=== PATIENT | male | born 1975 | race African-American/Black ===

== ENCOUNTER 2024-08-01 12:58 | Outpatient (AMB) | payer OTHER, SELFPAY ==
--- NOTE | 2024-08-01 13:03 | A.OFFVIS_ITS ---
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 Mold Technician Required: No Accompanied by: Self / Same As Patient Allergies egg allergy Allergy (Intermediate, Uncoded 08/01/24 13:02) Unknown Medication List - Last Reconciled 08/01/24 by Jay Parr MD albuterol sulfate 90 mcg/actuation (Ventolin HFA) 2 puffs inhalation Q6H PRN amlodipine 5 mg PO DAILY blood sugar diagnostic (FreeStyle Lite Strips) As directed blood-glucose meter (FreeStyle Lite Meter kit) As directed budesonide-formoterol 160-4.5 mcg/actuation (Symbicort) inhalation cholecalciferol (vitamin D3) 25 mcg PO DAILY diclofenac sodium 1% (Voltaren Arthritis Pain) 2 grams topical QID fluconazole 150 mg PO Q3D lancets (FreeStyle Lancets) As directed metformin 850 mg PO DAILY thiamine HCl (vitamin B1) 100 mg PO DAILY tiotropium bromide 1.25 mcg/actuation (Spiriva Respimat) 2 puffs inhalation DAILY HPI Comments Details: Cheri is a very pleasant male. He is a patient Dr. Fam. He seen for the following urologic conditions - renal mass Imaging reviewed Left 2.7 cm cystic exophytic renal mass Highly likely to be renal cell carcinoma variant Discussed natural history Plan on reimaging in 2 months Would likely be a good candidate for cryotherapy given diabetes diagnosis [facility] Medical History Onychomadesis HTN (hypertension) Diabetes mellitus, type II Balanitis Asthma Alcohol abuse Acute pancreatitis Review of Systems Const Denies chills and Denies fever(s) Card Reports no additional complaints and Denies syncope Resp Denies cough GI Denies abdominal pain and Denies heartburn Reports as per HPI and Denies change in libido Neuro Denies syncope Psych Denies change in libido Endo Denies change in libido Physical Exam Const General: cooperative, healthy appearing, comfortable and no acute distress Orientation/consciousness: patient oriented x3 HEENT Face and sinus: Yes normal facial exam Mouth: moist mucous membranes Neck Neck: Yes normal visual inspection, Yes full ROM and Yes trachea midline Chest Chest palpation & inspection: normal inspection of the chest Resp Effort & Inspection: normal respiratory effort, able to speak in complete sentences and no respiratory distress GI Inspection: Yes normal to inspection Back/Spine/Pelvis Cervical Spine: normal cervical lordosis Thoracic/Lumbar Spine: thoracic and lumbar spine normal to inspection Skin General skin exam: no rashes or lesions noted Neuro General: patient oriented x3, gait normal, tone normal and moves all extremities Extrem General: Yes normal to inspection and Yes capillary refill normal Assessment & Plan Assessment & Plan (1) Renal cancer: Code(s): C64.9 - Malignant neoplasm of unspecified kidney, except renal pelvis Category: Medical Plan Two month follow-up surveillance imaging Orders: Orders Blood Urea Nitrogen 2 Months C64.9 - Malignant neoplasm of unspecified kidney, except renal pelvis, R39.15 - Urgency of urination CT abdomen w IV con 2 Months C64.9 - Malignant neoplasm of unspecified kidney, except renal pelvis Creatinine 2 Months C64.9 - Malignant neoplasm of unspecified kidney, except renal pelvis, R39.15 - Urgency of urination Patient Instructions: Imaging studies, laboratory and physical exam results were discussed and reviewed in detail. No major barriers to patient understanding were identified. An opportunity to ask questions regarding the treatment plan was provided. All questions were answered. The patient expressed understanding and agreement with the above treatment plan. The patient is aware they should contact our office by phone for worsening of their current condition or the appearance of new urologic symptoms. Compliance is encouraged with any medications and followup testing that is ordered. It is a privilege to participate in the urologic care of your patient. If you have any questions or concerns regarding treatment for the above conditions, or other urologic issues, please do not hesitate to contact me. The office telephone contact is [phone]. This note is constructed using voice recognition software. While every effort has been made to ensure accuracy nanny/household manager errors may have been included. Yours sincerely, Dr Jay Parr MD, [facility] - Urology Providers of Expert, Compassionate Care for the Genitourinary System Coding Level of Care Code New Pt Level 4 (98100) Diagnoses Renal cancer C64.9
== END 2024-08-01 13:34 | disposition home or self-care (01) ==
PROVIDERS: PCP Nurse Practitioner Family; Visit Provider Urology
DX: C64.9 Malignant neoplasm of unspecified kidney, except renal pelvis (principal)
CPT/HCPCS: 99204

== ENCOUNTER → 2024-08-01 12:58 | Outpatient (BNVA) | payer OTHER, SELFPAY | PROVIDERS: PCP Nurse Practitioner Family; Visit Provider Urology | DX: C64.9 Malignant neoplasm of unspecified kidney, except renal pelvis (principal) | CPT/HCPCS: 99202 ==

== ENCOUNTER 2024-09-21 13:34 | Outpatient (AMB) | payer OTHER, SELFPAY ==
--- NOTE | 2024-09-21 13:37 | MHC.OFFVIS ---
Intake Visit Reasons: discuss erectile dysfunction concerns Intake Note: Patient with New Problem is present for Erectile Dysfunction concerns Urology Med: None Antibiotic Allergy: None Blood Thinner: None Patient was recently seen for Renal cancer, at time of appointment he forget to mention that he has some Erectile Dyf concerns Testing Machine Operator Required: No Accompanied by: Self / Same As Patient Allergies egg allergy Allergy (Intermediate, Uncoded 09/21/24 13:41) Unknown HPI Comments Details: Cheri is a very pleasant male. He is a patient Dr. Fam. He seen for the following urologic conditions - renal cancer - erectile dysfunction Erectile dysfunction Progressive over past 3 years Is able to obtain partial erection but can not maintain through penetration Associated with diabetes Recommend daily tadalafil with on demand tadalafil Demonstrated penile constriction band Imaging reviewed Left 2.7 cm cystic exophytic renal mass Highly likely to be renal cell carcinoma variant Discussed natural history Plan on reimaging in 2 months Would likely be a good candidate for cryotherapy given diabetes diagnosis [facility] Medical History Onychomadesis HTN (hypertension) Diabetes mellitus, type II Balanitis Asthma Alcohol abuse Acute pancreatitis Review of Systems Const Denies chills and Denies fever(s) Card Reports no additional complaints and Denies syncope Resp Denies cough GI Denies abdominal pain and Denies heartburn Reports as per HPI and Denies change in libido Neuro Denies syncope Psych Denies change in libido Endo Denies change in libido Physical Exam Const General: cooperative, healthy appearing, comfortable and no acute distress Orientation/consciousness: patient oriented x3 HEENT Face and sinus: Yes normal facial exam Mouth: moist mucous membranes Neck Neck: Yes normal visual inspection, Yes full ROM and Yes trachea midline Chest Chest palpation & inspection: normal inspection of the chest Resp Effort & Inspection: normal respiratory effort, able to speak in complete sentences and no respiratory distress GI Inspection: Yes normal to inspection Rectal Exam - Male: Yes normal sphincter tone and Yes prostate normal Male General Exam: Yes normal external exam Penis: normal penis and circumcised Meatus: meatus normal Scrotum: scrotum normal Testes: Testes normal Back/Spine/Pelvis Cervical Spine: normal cervical lordosis Thoracic/Lumbar Spine: thoracic and lumbar spine normal to inspection Skin General skin exam: no rashes or lesions noted Neuro General: patient oriented x3, gait normal, tone normal and moves all extremities Extrem General: Yes normal to inspection and Yes capillary refill normal Assessment & Plan Assessment & Plan (1) Erectile dysfunction associated with type 2 diabetes mellitus: Code(s): E11.69 - Type 2 diabetes mellitus with other specified complication; N52.1 - Erectile dysfunction due to diseases classified elsewhere Category: Medical Plan High-dose tadalafil Follow-up as planned Medications: New tadalafil [facility] [address] [id number] 5 mg PO DAILY 90 days 90 tabs 1RF sexual activity E11.69 - Type 2 diabetes mellitus with other specified complication, N52.1 - Erectile dysfunction due to diseases classified elsewhere tadalafil On demand medication take 60 minutes before intended activity [facility] [address] [id number] 20 mg PO ONCE 30 days PRN 30 tabs 0RF sexual activity E11.69 - Type 2 diabetes mellitus with other specified complication, N52.1 - Erectile dysfunction due to diseases classified elsewhere Patient Instructions: Imaging studies, laboratory and physical exam results were discussed and reviewed in detail. No major barriers to patient understanding were identified. An opportunity to ask questions regarding the treatment plan was provided. All questions were answered. The patient expressed understanding and agreement with the above treatment plan. The patient is aware they should contact our office by phone for worsening of their current condition or the appearance of new urologic symptoms. Compliance is encouraged with any medications and followup testing that is ordered. It is a privilege to participate in the urologic care of your patient. If you have any questions or concerns regarding treatment for the above conditions, or other urologic issues, please do not hesitate to contact me. The office telephone contact is [phone]. This note is constructed using voice recognition software. While every effort has been made to ensure accuracy paper bag inspector errors may have been included. Yours sincerely, Dr Jay Parr MD, [facility] - Urology Providers of Expert, Compassionate Care for the Genitourinary System Coding Level of Care Code Est Pt Level 4 (52008) Diagnoses Erectile dysfunction associated with type 2 diabetes mellitus E11.69; N52.1
== END 2024-09-21 14:17 | disposition home or self-care (01) ==
LOC: HO.HUSH 13:35
PROVIDERS: PCP Nurse Practitioner Family; Visit Provider Urology
DX: E11.69 Type 2 diabetes mellitus with other specified complication (principal); N52.1 Erectile dysfunction due to diseases classified elsewhere
CPT/HCPCS: 99214

== ENCOUNTER → 2024-09-21 13:34 | Outpatient (BNVA) | payer OTHER, SELFPAY | PROVIDERS: PCP Nurse Practitioner Family; Visit Provider Urology | DX: E11.69 Type 2 diabetes mellitus with other specified complication (principal); N52.1 Erectile dysfunction due to diseases classified elsewhere | CPT/HCPCS: 99212 ==

== ENCOUNTER 2024-10-04 14:23 | Outpatient (REF) | payer OTHER, SELFPAY ==
[2024-10-04] MEDS: iohexoL 350 MG/ML 75 ML INFUS..BTL 85 ML IV (15:14)
== END 2024-10-04 14:24 | disposition home or self-care (01) ==
LOC: HO.CT 14:23
PROVIDERS: Visit Provider Urology
DX: C64.9 Malignant neoplasm of unspecified kidney, except renal pelvis (principal)
CPT/HCPCS: 74160; Q9967

== ENCOUNTER → 2024-10-04 14:25 | Outpatient (BNV) | payer OTHER, SELFPAY | PROVIDERS: Visit Provider Radiology Diagnostic Radiology | DX: D41.02 Neoplasm of uncertain behavior of left kidney (principal); K86.1 Other chronic pancreatitis | CPT/HCPCS: 74160 ==

== ENCOUNTER 2024-11-02 13:28 | Outpatient (AMB) | payer OTHER, SELFPAY ==
--- NOTE | 2024-11-02 13:29 | MHC.OFFVIS ---
Intake Visit Reasons: CT follow up Intake Note: Patient is present for Urology Med: Tadalafil Antibiotic Allergy: None Blood Thinner: None Patient Symptoms: No symptoms Bulb Grower Required: No Accompanied by: Self / Same As Patient Allergies egg allergy Allergy (Intermediate, Uncoded 11/02/24 13:30) Unknown HPI Comments Details: Cheri is a very pleasant male. He is a patient Dr. Fam. He seen for the following urologic conditions - renal cancer - erectile dysfunction Telemedicine Evaluation 15 min Consultation Enpirion Miah Video Three-month follow-up from daily use of tadalafil with on demand - effective Reimaging of renal lesion High degree of suspicion [place] renal biopsy with cryotherapy Erectile dysfunction Progressive over past 3 years Is able to obtain partial erection but can not maintain through penetration Associated with diabetes Recommend daily tadalafil with on demand tadalafil Demonstrated penile constriction band Imaging reviewed Left 2.7 cm cystic exophytic renal mass Highly likely to be renal cell carcinoma variant Discussed natural history Plan on reimaging in 2 months Would likely be a good candidate for cryotherapy given diabetes diagnosis [facility] Medical History (Reviewed 11/02/24 @ 13:32 by Marlena Monterroso [facility]) Onychomadesis HTN (hypertension) Diabetes mellitus, type II Balanitis Asthma Alcohol abuse Acute pancreatitis Review of Systems Const All systems reviewed & are unremarkable except as noted in HPI and below Reports no additional complaints Resp Reports no additional complaints GI Reports no additional complaints Reports as per HPI Musc Reports no additional complaints Physical Exam Telemedicine evaluation Appropriate responses Regular breathing rate and rhythm HEENT Head: Yes normal to inspection Ears: hearing grossly normal bilaterally Eyes General: appearance normal, both eyes and all related structures Neck Neck: Yes normal visual inspection Chest Chest palpation & inspection: normal inspection of the chest Resp Effort & Inspection: normal respiratory effort and able to speak in complete sentences Telehealth Telehealth Telehealth Platform: Enpirion Location of provider rendering services: practice address Location of patient: address on file Patient Identification confirmed using: Name, : Yes Telehealth method: video Patient verbally consented to treatment: Yes Patient verbally consented to billing insurance company: Yes Patient informed of any privacy concerns related to visit: Yes Minutes spent on Phone/Video with Pt.: 15 Assessment & Plan Assessment & Plan (1) Renal cancer: Code(s): C64.9 - Malignant neoplasm of unspecified kidney, except renal pelvis Category: Medical (2) Erectile dysfunction associated with type 2 diabetes mellitus: Code(s): E11.69 - Type 2 diabetes mellitus with other specified complication; N52.1 - Erectile dysfunction due to diseases classified elsewhere Category: Medical Plan Risks, benefits and alternatives to therapy were discussed. These include but are not limited to infection, bleeding, damage to local organs and tissues, need for further interventions. Anesthetic risks regarding cardiac arrhythmia, blood clots, and potential mortality were discussed. The patient understands the typical recovery time and the outpatient nature of the procedure. After consideration of these risks the patient gives full informed consent and they wish to move ahead with the procedure. CT guided renal cryotherapy Orders: Orders CT Guided Cryo Ablation Renal Today C64.9 - Malignant neoplasm of unspecified kidney, except renal pelvis Referrals Interventional Radiology Referral C64.9 - Malignant neoplasm of unspecified kidney, except renal pelvis Patient Instructions: Imaging studies, laboratory and physical exam results were discussed and reviewed in detail. No major barriers to patient understanding were identified. An opportunity to ask questions regarding the treatment plan was provided. All questions were answered. The patient expressed understanding and agreement with the above treatment plan. The patient is aware they should contact our office by phone for worsening of their current condition or the appearance of new urologic symptoms. Compliance is encouraged with any medications and followup testing that is ordered. It is a privilege to participate in the urologic care of your patient. If you have any questions or concerns regarding treatment for the above conditions, or other urologic issues, please do not hesitate to contact me. The office telephone contact is [phone]. This note is constructed using voice recognition software. While every effort has been made to ensure accuracy fish boning machine feeder errors may have been included. Yours sincerely, Dr Jay Parr MD, [facility] - Urology Providers of Expert, Compassionate Care for the Genitourinary System Coding Level of Care Code Tele Est Pt Level 4 (76607) Diagnoses Renal cancer C64.9 Erectile dysfunction associated with type 2 diabetes mellitus E11.69; N52.1
== END 2024-11-02 15:38 | disposition home or self-care (01) ==
LOC: HO.HUSH 13:29
PROVIDERS: PCP Nurse Practitioner Family; Visit Provider Urology
DX: C64.9 Malignant neoplasm of unspecified kidney, except renal pelvis (principal); E11.69 Type 2 diabetes mellitus with other specified complication; N52.1 Erectile dysfunction due to diseases classified elsewhere
CPT/HCPCS: 99214

== ENCOUNTER → 2024-12-26 09:29 | Outpatient (BNVA) | payer OTHER, SELFPAY | PROVIDERS: PCP Nurse Practitioner Family; Visit Provider Urology ==

== ENCOUNTER 2025-01-29 11:48 | Day surgery (SDC) | payer OTHER, SELFPAY ==
--- OUTSIDE RECORDS SUMMARY | 2025-01-10 10:10 | XMS_ITS | Clinical Summary ---
Author Organization [facility] ity Address [address] [place] [address] Care Team Providers Care Grooming Assistant Name Role Phone Unavailable Primary Care Provider Unavailabl e Social History Tobacco Use Types Packs/Day Years Used Date Smoking Tobacco: Never Assessed Sex and Gender Information Value Date Recorded Sex Assigned at Not on file Legal Sex Male 3:02 AM EST Gender Identity Not on file Sexual Orientation Not on file Plan of Treatment Health Maintenance Due Date Last Done Comments DTaP,Tdap,and Td Vaccines (1 - Tdap) 1994 Hepatitis B Vaccines (1 of 3 - 19+ 3-dose series) 1994 Cholesterol Screening (Lipid Panel) 10/24/2022 Colorectal Cancer Screening: Colonoscopy 10/24/2022 Depression Screening 10/24/2022 HIV Screening 10/24/2022 Hepatitis C Screening 10/24/2022 Social Influencers of Health Screening 10/24/2022 COVID-19 Vaccine ( - 2023-2 5 season) 2024 Influenza Vaccine (#1) 2024 HIB Vaccines Aged Out No longer eligi ble based on patient's age to complete this topic HPV Vaccines Aged Out No longer eligi ble based on patient's age to complete this topic Hepatitis A Vaccines Aged Out No long er eligible based on patient's age to complete this topic IPV Vaccines Aged Out No longer eligi ble based on patient's age to complete this topic MMR Vaccines Aged Out No longer eligi ble based on patient's age to complete this topic Meningococcal ACWY Vaccine Aged Out N o longer eligible based on patient's age to complete this topic Meningococcal B Vacine Aged Out No lo nger eligible based on patient's age to complete this topic Pneumococcal Vaccine: Pediat rics (0 to 5 Years) and At-Risk Patients (6 to 64 Years) Aged Out No longer eligible b ased on patient's age to complete this topic RSV Immunization Patients Un darlene 20 months Aged Out No longer eligible b ased on patient's age to complete this topic Varicella Vaccines Aged Out No longer eligible based on patient's age to complete this topic
[2025-01-25 09:58] VITALS: BMI 26.4
--- NOTE | 2025-01-28 11:50 | HO.ANESPROP2 ---
Documented by User: Susan Howard NP 01/28/25 11:52 HPI - Anesthesia Eval Consult details Narrative: 49yo M for Kidney Cryo-Ablation Hold 4 Hrs ETOH abuse PMFSH Active Problems Active Problems: All Active Problems (Updated 01/28/25 @ 11:50 by Susan Howard NP) Erectile dysfunction associated with type 2 diabetes mellitus (Acute) Renal cancer (Acute) Past Medical History Medical History Cough Positive skin test for tuberculosis COPD (chronic obstructive pulmonary disease) Chronic alcoholic liver disease Onychomadesis HTN (hypertension) Diabetes mellitus, type II Balanitis Asthma Alcohol abuse Acute pancreatitis Surgical History Surgical History H/O removal of cyst Social History Social History Are you a primary pharmacy customer care specialist to a significant other at home: No Do you presently have visiting nurse or other home services: No Patient Tobacco Use Status: Current everyday Tobacco user Cigarette Packs Per Day: 1.0 Cigarettes Per Day: 20.0 Use of substances other than those prescribed or required for medical reasons: Yes Substance Use Frequency: Daily Have you been hit, kicked, punched, or otherwise hurt by someone within the past year? If so, by whom?: No Are you DNR?: No Advance Directives: No Advance Directives Information Provided: Yes Advance Directives on File: No Recently lost weight without trying: No Eating poorly because of decreased appetite: No Nutrition Risks: No Nutritional Risk Poor oral hygiene: Yes (partial upper and lower, one lower crown) Meds Allergies Allergy/AdvReac Type Severity Reaction Status Date / Time Milk Containing Products Allergy Unknown Verified 01/24/25 11:52 (Dairy) egg allergy Allergy Intermediate Unknown Uncoded 12/26/24 09:30 Home Medications ?Medication ?Instructions ?Recorded ?Confirmed ?Last Taken ?Type amlodipine 5 mg tablet 5 mg PO DAILY 08/01/24 01/25/25 Unknown History blood sugar diagnostic (FreeStyle #10 ea 08/01/24 08/01/24 Unknown History Lite Strips) blood-glucose meter (FreeStyle #1 ea 08/01/24 08/01/24 Unknown History Lite Meter kit) budesonide-formoterol HFA 160 2 inh inhalation BID 08/01/24 01/25/25 Unknown History mcg-4.5 mcg/actuation aerosol inhaler (Symbicort) cholecalciferol (vitamin D3) 25 25 mcg PO DAILY 08/01/24 01/25/25 Unknown History mcg (1,000 unit) capsule lancets 28 gauge (FreeStyle #100 ea 08/01/24 08/01/24 Unknown History Lancets) thiamine HCl (vitamin B1) 100 mg 100 mg PO DAILY 08/01/24 01/25/25 Unknown History tablet metformin 1,000 mg tablet 1,000 mg PO BID 01/25/25 01/25/25 Unknown History Exam Height,Weight and Vital Signs: Height 5 ft 4 in Weight 69.853 kg Narrative Narrative: EKG 2023 Ventricular Rate: 83 BPM Atrial Rate: 83 BPM P-R Interval: 180 ms QRS Duration: 88 ms Q-T Interval: 342 ms QTC Calculation(Bazett): 401 ms P Franklin: 61 degrees R Franklin: 34 degrees T Franklin: 3 degrees Normal sinus rhythm Normal ECG No previous ECGs available Confirmed by LISA CONKLIN MD ([id number]) on 04/08/2024 7:41:08 AM CXR 2023 IMPRESSION: No acute abnormality. No change. Assessment and Plan Assessment Anesthesia Assessment: Chart Reviewed Documented by User: Vitaliy Mendiola MD 01/29/25 14:27 [facility] Past Medical History Medical History Cough Positive skin test for tuberculosis COPD (chronic obstructive pulmonary disease) Chronic alcoholic liver disease Onychomadesis HTN (hypertension) Diabetes mellitus, type II Balanitis Asthma Alcohol abuse Acute pancreatitis Family History Family history of problems with anesthesia: No Surgical History Surgical History H/O removal of cyst History of Problems with Anesthesia: No Social History Social History Are you a primary pharmacy customer care specialist to a significant other at home: No Do you presently have visiting nurse or other home services: No Patient Tobacco Use Status: Current everyday Tobacco user Cigarette Packs Per Day: 1.0 Cigarettes Per Day: 20.0 Use of substances other than those prescribed or required for medical reasons: Yes Substance Use Frequency: Daily Have you been hit, kicked, punched, or otherwise hurt by someone within the past year? If so, by whom?: No Are you DNR?: No Advance Directives: No Advance Directives Information Provided: Yes Advance Directives on File: No Recently lost weight without trying: No Eating poorly because of decreased appetite: No Nutrition Risks: No Nutritional Risk Poor oral hygiene: Yes (partial upper and lower, one lower crown) Meds Allergies Allergy/AdvReac Type Severity Reaction Status Date / Time Milk Containing Products Allergy Unknown Verified 01/24/25 11:52 (Dairy) egg allergy Allergy Intermediate Unknown Uncoded 12/26/24 09:30 Home Medications ?Medication ?Instructions ?Recorded ?Confirmed ?Last Taken ?Type amlodipine 5 mg tablet 5 mg PO DAILY 08/01/24 01/25/25 Unknown History blood sugar diagnostic (FreeStyle #10 ea 08/01/24 08/01/24 Unknown History Lite Strips) blood-glucose meter (FreeStyle #1 ea 08/01/24 08/01/24 Unknown History Lite Meter kit) budesonide-formoterol HFA 160 2 inh inhalation BID 08/01/24 01/25/25 Unknown History mcg-4.5 mcg/actuation aerosol inhaler (Symbicort) cholecalciferol (vitamin D3) 25 25 mcg PO DAILY 08/01/24 01/25/25 Unknown History mcg (1,000 unit) capsule lancets 28 gauge (FreeStyle #100 ea 08/01/24 08/01/24 Unknown History Lancets) thiamine HCl (vitamin B1) 100 mg 100 mg PO DAILY 08/01/24 01/25/25 Unknown History tablet metformin 1,000 mg tablet 1,000 mg PO BID 01/25/25 01/25/25 Unknown History Exam Airway Mallampati Class: II TM Dist: >3cm Loose/Missing/Broken Teeth: Yes Assessment and Plan Assessment Anesthesia Assessment: Anesthesia Plan Discussed Final Anesthetic Review Family History of Problems with Anesthesia: No History of Problems with Anesthesia: No NPO: Yes ASA Class: III Final Preanesthetic Review: No Changes in Pt Med Stat, Meds/Allgs Chart Reviewed, Consent Obtained/Reviewed and Anes Risks/Benef Reviewed Patient Risk: Intermediate Procedure Risk: Low Anesthetic Plan Anesthetic Plan: GA Disposition: Standard PACU
[2025-01-29] VITALS (12 sets, daily range): BP systolic 132–156; BP diastolic 83–103; PULSE 71–92; RESP 18–20; TEMP 36.6–36.9; O2SAT 94–97
--- NOTE | ~2025-01-29 | CT_ITS ---
History: Patient with 2.44 x 2.1 x 2.16 cm mass at the upper pole of the left kidney. Presents for ablation. Procedure performed: 1. CT-guided cryoablation of left renal mass Physician: Arelis Eason MD Anesthesia: General. See anesthesiology note; 9 mL of 1% lidocaine used for local anesthesia. Specimen: None Drain: None Estimated blood loss: Minimal Complications: None Procedure in detail: Informed and written consent was obtained. The patient was positioned prone on the CT examination table. Preliminary CT scan showed no significant change in the presence of a left upper pole mass. The overlying skin was prepped and draped and we marked two areas for access. 1% lidocaine was injected into the subcutaneous tissues at the planned access sites. Two small incisions were made adjacent to one another with a #11 blade and spaced between 1 and 1.5 cm apart. Next, and in a sequential fashion, two ICE MALORIE cryoablation probes were advanced under CT guidance directly into the mass. The positioning was exactly as desired. We then began treatment with a freeze cycle followed by passive thaw followed by a second freeze cycle followed by an active thaw with subsequent tract ablation performed on both probes. The ice ball was monitored during treatment and confirmed surgical margins were obtained for the mass. Following removal of the probes, a subsequent CT scan showed no evidence of bleeding nor other complication. We were satisfied with this and elected to terminate the procedure. A sterile dressing was applied. Summary: Successful CT-guided cryoablation of a left upper pole renal mass as described in detail above. Electronically signed by: Bird Eason MD 01/29/2025 03:37 PM EDT
[2025-01-29 12:29] LABS: Glucose, Whole Blood 164 mg/dL (60-115)
[2025-01-29] MEDS: Lactated Ringers 1,000 ML 100 ML IVCONT (12:41)
[2025-01-29] MEDS: Lidocaine HCl 1 % MPF 30 ML VIAL 10 ML SUBCUT (15:29)
[2025-01-29] MEDS: oxyCODONE HCl Immed Release 5 MG TABLET 10 MG PO (16:02)
[2025-01-29] MEDS: Acetaminophen 325 MG TABLET 650 MG PO (16:03)
[2025-01-29] MEDS: Lidocaine 5 % Ointment 35 GM 1 APPL TOPICAL (16:55)
== END 2025-01-29 18:00 | disposition home or self-care (01) ==
PROVIDERS: PCP Nurse Practitioner Family; Visit Provider Radiology Vascular & Interventional Radiology
DX: C46.9 Kaposi's sarcoma, unspecified (principal); I10 Essential (primary) hypertension; N48.1 Balanitis; E11.69 Type 2 diabetes mellitus with other specified complication; N52.1 Erectile dysfunction due to diseases classified elsewhere; K85.90 Acute pancreatitis without necrosis or infection, unspecified; L60.8 Other nail disorders; J45.909 Unspecified asthma, uncomplicated; Z79.84 Long term (current) use of oral hypoglycemic drugs; Z79.899 Other long term (current) drug therapy; Z91.012 Allergy to eggs; Z91.011 Allergy to milk products; F10.10 Alcohol abuse, uncomplicated; F17.210 Nicotine dependence, cigarettes, uncomplicated; Z79.51 Long term (current) use of inhaled steroids
CPT/HCPCS: 50593; 77013; 82947; J0690; J1100; J2003; J2405; J2704; J3010

== ENCOUNTER → 2025-01-29 13:52 | Outpatient (BNV) | payer OTHER, SELFPAY | PROVIDERS: PCP Nurse Practitioner Family; Visit Provider Radiology Vascular & Interventional Radiology | DX: N28.89 Other specified disorders of kidney and ureter (principal) | CPT/HCPCS: 50593; 77013 ==

== ENCOUNTER 2025-02-14 13:09 | Outpatient (AMB) | payer OTHER, SELFPAY ==
--- NOTE | 2025-02-14 13:10 | A.OFFVIS_ITS ---
Intake Visit Reasons: Cryo, follow up Intake Note: Patient is present for [facility] F/U Urology Medication:TADALAFIL,VITAMIN B1 Antibiotic Allergy:NONE Blood Thinner:NONE Maintenance Analyst Required: No Allergies Milk Containing Products (Dairy) Allergy (Verified 02/14/25 13:10) Unknown egg allergy Allergy (Intermediate, Uncoded 02/14/25 13:10) Unknown HPI Comments Details: Cheri is a very pleasant male. He is a patient Dr. Fam. He seen for the following urologic conditions - renal cancer - erectile dysfunction Telemedicine Evaluation 15 min Consultation TuTanda Miah Video Follow-up cryotherapy Doing well Six-month follow-up imaging Erectile dysfunction Progressive over past 3 years Is able to obtain partial erection but can not maintain through penetration Associated with diabetes Recommend daily tadalafil with on demand tadalafil Demonstrated penile constriction band Renal cancer - 02/12 cryoablation Left 2.7 cm cystic exophytic renal mass Complex renal cyst PFSH Medical History Cough Positive skin test for tuberculosis COPD (chronic obstructive pulmonary disease) Chronic alcoholic liver disease Onychomadesis HTN (hypertension) Diabetes mellitus, type II Balanitis Asthma Alcohol abuse Acute pancreatitis Surgical History H/O removal of cyst Social History Are you a primary acute care certified nursing assistant to a significant other at home: No Do you presently have visiting nurse or other home services: No Patient Tobacco Use Status: Current everyday Tobacco user Cigarette Packs Per Day: 1.0 Cigarettes Per Day: 20.0 Review of Systems Const All systems reviewed & are unremarkable except as noted in HPI and below Reports no additional complaints Resp Reports no additional complaints GI Reports no additional complaints Reports as per HPI Musc Reports no additional complaints Physical Exam Telemedicine evaluation Appropriate responses Regular breathing rate and rhythm HEENT Head: Yes normal to inspection Ears: hearing grossly normal bilaterally Eyes General: appearance normal, both eyes and all related structures Neck Neck: Yes normal visual inspection Chest Chest palpation & inspection: normal inspection of the chest Resp Effort & Inspection: normal respiratory effort and able to speak in complete sentences Telehealth Telehealth Location of provider rendering services: practice address Location of patient: address on file Patient Identification confirmed using: Name, : Yes Telehealth method: voice only Patient verbally consented to treatment: Yes Patient verbally consented to billing insurance company: Yes Patient informed of any privacy concerns related to visit: Yes Assessment & Plan Assessment & Plan (1) Renal cancer: Code(s): C64.9 - Malignant neoplasm of unspecified kidney, except renal pelvis Category: Medical (2) Erectile dysfunction associated with type 2 diabetes mellitus: Code(s): E11.69 - Type 2 diabetes mellitus with other specified complication; N52.1 - Erectile dysfunction due to diseases classified elsewhere Category: Medical Plan Six-month follow-up MRI imaging Orders: Orders MR abdomen wo/w con 6 Months C64.9 - Malignant neoplasm of unspecified kidney, except renal pelvis Patient Instructions: This note is constructed using voice recognition software. While every effort has been made to ensure accuracy cutter helper errors may have been included. Imaging studies, laboratory and physical exam results were discussed and reviewed in detail. No major barriers to patient understanding were identified. An opportunity to ask questions regarding the treatment plan was provided. All questions were answered. The patient expressed understanding and agreement with the above treatment plan. The patient is aware they should contact our office by phone for worsening of their current condition or the appearance of new urologic symptoms. Compliance is encouraged with any medications and followup testing that is ordered. It is a privilege to participate in the urologic care of your patient. If you have any questions or concerns regarding treatment for the above conditions, or other urologic issues, please do not hesitate to contact me. The office telephone contact is [phone]. Sincerely, Dr Jay Parr MD, [facility] - Urology Compassionate Specialist Care for the Genitourinary System Coding Level of Care Code Tele Est Pt Level 3 (00967) Diagnoses Renal cancer C64.9 Erectile dysfunction associated with type 2 diabetes mellitus E11.69; N52.1
== END 2025-02-14 15:02 | disposition home or self-care (01) ==
LOC: HO.HUSH 13:09
PROVIDERS: PCP Nurse Practitioner Family; Visit Provider Urology
DX: C64.9 Malignant neoplasm of unspecified kidney, except renal pelvis (principal); E11.69 Type 2 diabetes mellitus with other specified complication; N52.1 Erectile dysfunction due to diseases classified elsewhere
CPT/HCPCS: 98013

== ENCOUNTER → 2025-02-14 13:09 | Outpatient (BNVA) | payer OTHER, SELFPAY | PROVIDERS: PCP Nurse Practitioner Family; Visit Provider Urology ==

== ENCOUNTER 2025-08-02 10:22 | Outpatient (REF) | payer OTHER, SELFPAY ==
--- NOTE | ~2025-08-02 | MR_ITS ---
EXAMINATION: MR ABDOMEN WITHOUT THEN WITH IV CONTRAST HISTORY: C64.9 - Malignant neoplasm of unspecified kidney, except renal pelvis COMPARISON: Correlation is made with a CT of the abdomen with contrast dated 10/04/2024. TECHNIQUE: Axial in and out of phase T1-weighted gradient echo, axial diffusion weighted, and axial and coronal HASTE T2 with fat saturation images were obtained through the abdomen. Subsequently, fat suppressed axial and coronal T1-weighted images were obtained after the intravenous administration of 7 mL Gadavist. FINDINGS: Liver: There is diffuse loss of signal intensity in the liver on opposed phase imaging, compatible with steatosis. There is no enhancing liver mass. The hepatic and portal veins are patent. There is no intrahepatic biliary dilatation. Gallbladder/biliary tree: No gallstones are identified. The common bile duct is normal in caliber. No intraluminal filling defects are identified to suggest choledocholithiasis. Spleen: The spleen is unremarkable. Pancreas: The pancreas is unremarkable. There is no enhancing pancreatic mass. The pancreatic duct is normal in caliber. Adrenals: The adrenal glands are unremarkable. Kidneys: The right kidney is unremarkable. There is an irregularly-shaped 2.5 x 1.6 x 1.9 cm ablation cavity at the medial aspect of the upper pole of the left kidney which is hypointense on T1 and T2-weighted images. There is no associated contrast enhancement. There is no hydronephrosis. Lymph nodes: There is no retroperitoneal lymphadenopathy in the upper abdomen. Fluid: There is no ascites in the upper abdomen. Visualized bowel: The visualized small and large bowel loops are unremarkable in appearance. Visualized bones: The visualized bones demonstrate normal marrow signal intensity. MR/MR abdomen wo/w con IMPRESSION: 1. Ablation cavity of the medial aspect of the upper pole of the left kidney. No residual enhancement is seen. 2. Hepatic steatosis. Electronically signed by: Christopher Jacobs MD 08/02/2025 11:47 AM EDT
--- OUTSIDE RECORDS SUMMARY | 2025-08-02 12:04 | XMS_ITS | Clinical Summary ---
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 Phone Unavailable Primary Care Provider [...] Panel) 10/24/2022 Colorectal Cancer Screening: Colonoscopy 10/24/2022 HIV Screening 10/24/2022 Hepatitis C Screening 10/24/2022 Social Influencers of Health Screening 10/24/2022 Depression Screening 11/21/2024 COVID-19 Vaccine ( - 2023-2 5 season) 2025 Influenza Vaccine (#1) 2025 HIB Vaccines Aged Out No longer eligi [...] age to complete this topic Meningococcal B Vaccine Aged Out No l onger eligible based on patient's age to complete this topic Pneumococcal Vaccine: Pediat rics (0 to 5 Years) and At-Risk Patients (6 to 49 Years) Aged Out No longer eligible b ased on patient's age to complete this topic RSV Immunization Patients Un darlene 20 months Aged Out No longer eligible b ased on patient's age to complete this topic Varicella Vaccines Aged Out No longer eligible based on patient's age to complete this topic
== END 2025-08-02 10:23 | disposition home or self-care (01) ==
LOC: HO.MRI 10:22
PROVIDERS: Visit Provider Urology
DX: C64.9 Malignant neoplasm of unspecified kidney, except renal pelvis (principal)
CPT/HCPCS: 74183; A9585

== ENCOUNTER → 2025-08-02 10:31 | Outpatient (BNV) | payer OTHER, SELFPAY | PROVIDERS: Visit Provider Radiology Diagnostic Radiology | DX: K76.0 Fatty (change of) liver, not elsewhere classified (principal) | CPT/HCPCS: 74183 ==

== ENCOUNTER 2025-08-13 13:13 | Outpatient (AMB) | payer OTHER, SELFPAY ==
--- OUTSIDE RECORDS SUMMARY | 2025-08-08 17:12 | XMS_ITS | Encounter Summary ---
Author Organization [facility] Address [address] [place] [address] Care Team Providers Care Event Specialist Food Demonstrator Name Role Phone Physician, Pcp Unknown Primary Care Provider Amber vailable Reason for Visit * Reason Comments Abdominal Pain Hx of pancreatitis. Encounter Details Date Type Department Care Team ([facility] st Contact Info) Description 08/08/2025 5:12 PM EDT - 08/08/2025 8:32 PM EDT Emergency [facility] Emergency [address] [place] [address] Jessica Arvizu MD [address] [place] [address] Peg Cronin MD [address] [place] [id number] Acute on chronic pancreatitis (CMS/HCC V24, CMS/HCC V28) (Primary Dx) Discharge Disposition: Home or Self Care Social History Tobacco Use Types Packs/Day Years Used Date Smoking Tobacco: Never Assessed Sex and Gender Information Value Date Recorded Sex Assigned at Not on file Legal Sex Male 3:02 AM EST Gender Identity Not on file Sexual Orientation Not on file documented as of this encounter Last Filed Vital Signs Vital Sign Reading Time Taken Comments Blood Pressure 136/96 08/08/2025 5:54 PM EDT Pulse 76 08/08/2025 7:15 PM EDT Temperature 36.7 C (98.1 F) 08/08/2025 11:18 AM EDT Respiratory Rate 18 08/08/2025 5:54 PM EDT Oxygen Saturation 95% 08/08/2025 7:15 PM EDT Inhaled Oxygen Concentration - - Weight 68 kg (150 lb) 08/08/2025 11:18 AM EDT Height 162.6 cm (5' 4 ) 08/08/2025 11:18 AM EDT Body Mass Index 25.75 08/08/2025 11:18 AM EDT documented in this encounter Discharge Instructions * Discharge Instructions* Peg Crnoin MD - 08/08/2025 8:21 PM EDT Please take Tylenol ibuprofen as needed for pain. Please start with a clear liquid diet including water, broth, Jell-O. You can progress as tolerated to things like oatmeal, toast, rice. You can continue to advance your diet if tolerated. Please return to the hospital if your symptoms worsen. You would require admission to the hospital at that point. * Attachments The following attachments cannot be sent through Care Everywhere. * Pancreatitis: Chronic Diet (Lao) * Pancreatitis: Acute: General Info (Lao) documented in this encounter Discharge Disposition Disposition Code Departure Means Destination Comment s Home or Self Care documented in this encounter Progress Notes * Peg Cronin MD - 08/08/2025 6:36 PM EDT This patient was signed out to me by ED provider, Dr Arvizu. Briefly, the patient presented to the ED with abdominal pain, vomiting, inability to tolerate p.o. since day prior. Signed out to me pending CT abdomen pelvis. On my evaluation he has just completed nebulizer treatment. He is satting 94% on room air and his lungs are clear on my examination. On my abdominal exam he has some mild epigastric tenderness. He isfeeling better after pain medication but is not sure whether or not he will be able to take p.o. Given water to attempt, may require admission due to inability to take p.o. in the setting of pancreatitis. Patient denies history of significant alcohol withdrawal previously, does normally drink daily but no alcohol withdrawal seizures before. ED Course as of 08/08/252021 Odalys Aug 08, [id number] Lipase(!): 311 Elevated [RG] 1803 Comprehensive metabolic panel(!) Hyperglycemia, mildly elevated LFTs AST/ALT 54/80, otherwise WNL [RG] 1804 CBC and differential(!) No leukocytosis or anemia [RG] 180 Pt signed out to Dr. Cronin pending CT, re-evaluation of symptoms [RG] 1934 Patient tolerated water [AM] 1955 CT with fatty liver, acute on chronic pancreatitis, and renal mass that is unchanged from previous. [AM] 2019 Discussed with patient who is amenable at this time for discharge on clear liquid diet, advance diet as tolerated. Given return precautions for worsening abdominal pain and inability to toleratep.o., at that point would require admission for acute pancreatitis [AM] ED Course User Index [AM] Peg Cronin MD [RG] Jessica Arvizu MD Clinical Impressions as of 08/08/252021 Acute on chronic pancreatitis (CMS/HCC V24, CMS/HCC V28) * Mehdi Hutton RN - 08/08/2025 11:17 AM EDT Patient states abdominal pain from his pancreatitis. * Jessica Arvizu MD - 08/08/2025 11:15 AM EDT HPI Chief Complaint Patient presents with Abdominal Pain Hx of pancreatitis. Patient with history, per discharge summary 08/22/2024, of alcoholic pancreatitis, left renal mass, HTN, DM, seen at that time due to left-sided abdominal pain with lipase 193, also with UTI, CT showing mass with concern for renal cell carcinoma, note of no metastases or stones, treated at that timewith Dilaudid, note that he follows with [facility] presents saying that he has had aching pain throughout his entire belly since yesterday which is constant, makes it hard to sleep, associated with 1 episode of vomiting yesterday, no ongoing nausea, currently 8/10 in severity, unimproved withibuprofen 600 mg that he has been taking every 6 hours. Patient states that he had a bowel movement yesterday which was normal for him and denies chest pain, shortness of breath, fever, alcohol withdrawal symptoms. He states that he last had alcohol 2 days ago, usually drinks daily, specifically 4 to 5 40 ounces of beer, has been doing so for the last few months, has history of intermittent bingedrinking like this. He states he also smokes tobacco, denies other substance use. 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 No past surgical history on file. No family history on file. Social History Tobacco Use Smoking status: Not on file Smokeless tobacco: Not on file Substance Use Topics Alcohol use: Not on file Drug use: Not on file Review of Systems Review of Systems Physical Exam ED Triage Vitals [08/08/25 1118] Temp Heart Rate Resp BP 36.7 ??C (98.1 ??F) 75 18 (!) 146/98 SpO2 Temp Source Heart Rate Source Patient Position 97 % Oral Monitor Sitting BP Location FiO2 (%) Left arm -- Physical Exam Vitals and nursing note reviewed. Constitutional: General: He is not in acute distress. Appearance: Normal appearance. He is not ill-appearing. Cardiovascular: Rate and Rhythm: Normal rate and regular rhythm. Heart sounds: Normal heart sounds. Pulmonary: Effort: Pulmonary effort is normal. Breath sounds: Wheezing and rhonchi present. Comments: Mild wheezing and rhonchi Abdominal: Palpations: Abdomen is soft. Tenderness: There is generalized abdominal tenderness. Neurological: Mental Status: He is alert. ED Course & MDM Medical Decision Making Ddx: Pancreatitis, GERD, PUD, dehydration, electrolyte derangement, UTI, alcohol use disorder, asthma, COPD, smoker's cough, less likely other biliary tree pathology, SBO, other acute intraabdominal pathology, pneumonia Patient is well-appearing with vitals WNL on RA on arrival and normal cardiac exam, lung exam with mild diffuse wheezing and diffuse abdominal tenderness. Will obtain CT A/P. Patient is pending basiclabs, belly labs. Will treat with IVF, zofran, analgesia, duo-neb. Did consider CXR for pneumonia based on mild rhonchi and wheezing however patient has no symptoms consistent with this. Discussed plan. Amount and/or Complexity of Data Reviewed External Data Reviewed: notes. Labs: ordered. Decision-making details documented in ED Course. Radiology: ordered. ED Course as of 08/09/25 1947 Odalys Aug 08, 2025 1803 Lipase(!): 311 Elevated [RG] 1802 Comprehensive metabolic panel(!) Hyperglycemia, mildly elevated LFTs AST/ALT 54/80, otherwise WNL [RG] 1803 CBC and differential(!) No leukocytosis or anemia [RG] 1803 Pt signed out to Dr. Cronin pending CT, re-evaluation of symptoms [RG] 1934 Patient tolerated water [AM] 1955 CT with fatty liver, acute on chronic pancreatitis, and renal mass that is unchanged from previous. [AM] 2019 Discussed with patient who is amenable at this time for discharge on clear liquid diet, advance diet as tolerated. Given return precautions for worsening abdominal pain and inability to toleratep.o., at that point would require admission for acute pancreatitis [AM] ED Course User Index [AM] Peg Cronin MD [RG] Jessica Arvizu MD Clinical Impressions as of 08/09/251946 Acute on chronic pancreatitis (CMS/HCC V24, CMS/HCC V28) Procedures Jessica Arvizu MD 08/08/251800 Jessica Arvizu MD 08/09/251952 documented in this encounter Plan of Treatment Not on file documented as of this encounter Procedures Procedure Name Priority Date/Time Associated Diagnosis Comments CT ABDOMEN PELVIS W CONTRAST STAT 08/08/2025 7:31 PM EDT CBC WITH AUTO DIFFERENTIAL STAT 08/08/2025 12:51 PM EDT CBC AND DIFFERENTIAL STAT 08/08/2025 12:51 PM EDT LIPASE STAT 08/08/2025 12:51 PM EDT COMPREHENSIVE METABOLIC PANEL STAT 08/08/2025 12:51 PM EDT documented in this encounter Results * CT Abdomen Pelvis w Contrast (08/08/2025 7:31 PM EDT) Anatomical Region Laterality Modality Body Computed Tomogra phy 08/08/2025 7:50 PM EDT Impressions 08/08/2025 7:50 PM EDT 1. Fatty infiltration of the liver. 2. Acute pancreatitis superimposed on chronic pancreatitis. 3. Left renal lesion likely representing a angiomyolipoma measuring 3 cm unchanged since prior study. This document has been electronically signed by: Mary Castellano MD on 08/08/2025 19:50:05 Narrative 08/08/2025 7:50 PM EDT INDICATION: Abdominal pain, acute, nonlocalized CT abdomen and pelvis with contrast Comparison: CT/KO/NV/SR - ABDOMEN AND PELVIS C+ CT - 08/21/24 09:04 EDT Findings: The lung bases are clear. Fatty infiltration of the liver. The gallbladder, spleen, adrenals are unremarkable. Acute pancreatitis superimposed on chronic pancreatitis. Left renal lesion likely representing a angiomyolipoma measuring 3 cm unchanged since prior study. No bowel obstruction, pneumoperitoneum, or pneumatosis. Pelvic contents unremarkable. Normal appendix. The bones are intact. Procedure Note Mary Castellano MD - 08/08/2025 INDICATION: Abdominal pain, acute, nonlocalized CT abdomen and pelvis with contrast Comparison: CT/KO/NV/SR - ABDOMEN AND PELVIS C+ CT - 08/21/24 09:04 EDT Findings: The lung bases are clear. Fatty infiltration of the liver. The gallbladder, spleen, adrenals are unremarkable. Acute pancreatitis superimposed on chronic pancreatitis. Left renal lesion likely representing a angiomyolipoma measuring 3 cm unchanged since prior study. No bowel obstruction, pneumoperitoneum, or pneumatosis. Pelvic contents unremarkable. Normal appendix. The bones are intact. IMPRESSION: 1. Fatty infiltration of the liver. 2. Acute pancreatitis superimposed on chronic pancreatitis. 3. Left renal lesion likely representing a angiomyolipoma measuring 3 cm unchanged since prior study. This document has been electronically signed by: Mary Castellano MD on 08/08/2025 19:50:05 Jessica Arvizu MD [facility] CT PROCEDURES Final Result * (ABNORMAL) CBC auto differential (08/08/2025 12:51 PM EDT) WBC 10.4 4.8 - 10.8 K/[facility] LAB HEMETOLOGY METHOD 08/08/2025 1:42 PM EDT [facility] RBC 5.10 4.50 - 5.50 M/mcL LAB HEMETOLOGY METHOD 08/08/2025 1:42 PM EDT [facility] Hemoglobin 16.2 13.5 - 17.5 g/dL LAB HEMETOLOGY METHOD [facility]/08[facility] Hematocrit 47.6 42.0 - 54.0 % LAB HEMETOLOGY METHOD 08/08/2025 [facility] MCV 93.3 79.0 - 98.0 FL LAB HEMETOLOGY METHOD 08/08/2025 1:[facility] MCH 31.8 27.0 - 32.0 pcg LAB HEMETOLOGY METHOD 08/08/2025 1:42 PM [facility] MCHC 34.0 32.0 - 37.0 g/dL LAB HEMETOLOGY METHOD 08/08/2025 1:42 PM [facility] RDW 13.1 11.0 - 15.0 % LAB HEMETOLOGY METHOD 08/08/2025 1:42 PM [facility] Platelets 158 130 - 400 K/mcL LAB HEMETOLOGY METHOD 08/08/2025 1:42 PM [facility] MPV 10.6 7.0 - 11.0 FL LAB HEMETOLOGY METHOD 08/08/2025 1:[facility] NRBC 0.0 <1.0 % LAB HEMETOLOGY METHOD 08/08/2025 1:[facility] NRBC Absolute 0.00 <0.10 K/mcL LAB HEMETOLOGY METHOD 08/08/2025 1:[facility] Neutrophils Relative 63.2 % LAB HEMETOLOGY METHOD 08/08/2025 1:[facility] Lymphocytes Relative 22.6 % LAB HEMETOLOGY METHOD 08/08/2025 1:42 PM EDT [facility] Monocytes Relative 12.8 % LAB HEMETOLOGY METHOD 08/08/2025 1:42 PM EDT [facility] Eosinophils Relative 0.7 % LAB HEMETOLOGY METHOD 08/08/2025 1:42 PM EDT [facility] Basophils Relative 0.3 % LAB HEMETOLOGY METHOD 08/08/2025 1:42 PM EDT [facility] Immature Granulocytes Relative 0.4 % LAB HEMETOLOGY METHOD 08/08/2025 1:42 PM EDT [facility] Neutrophils Absolute 6.60 1.50 - 7.00 K/mcL LAB HEMETOLOGY METHOD 08/08/2025 1:[facility] Lymphocytes Absolute 2.36 1.00 - 5.00 K/mcL LAB HEMETOLOGY METHOD 08/08/2025 1:42 PM [facility] Monocytes Absolute 1.34(H) 0.20 - 1.00 K/mcL LAB HEMETOLOGY METHOD 08/08/2025 1:42 PM T [facility] Eosinophils Absolute 0.07 0.00 - 0.50 K/mcL LAB HEMETOLOGY METHOD 08/08/2025 1:42 PM [facility] Basophils Absolute 0.03 0.00 - 0.20 K/mcL LAB HEMETOLOGY METHOD 08/08/2025 1:42 PM T [facility] Immature Granulocytes Absolute 0.04(H) 0.00 - 0.03 K/mcL LAB HEMETOLOGY METHOD 08/08/2025 1:42 PM [facility] Blood Venous blood specimen / Unknown Venipuncture / Unknown 08/08/2025 12:51 PM EDT 08/08/2025 1:30 PM EDT [facility] LAB BLOOD ORDERABLES Final Re sult Performing Organization Address [facility]/ZIP Co de Phone Number [facility] [address] [place] [address], [place] [phone] * (ABNORMAL) Lipase (08/08/2025 12:51 PM EDT) Lipase 311(H) 13 - 75 unit/L LAB CHEMISTRY METHOD 08/08/2025 2:08 PM EDT [facility] Blood Venous blood specimen / Unknown Venipuncture / Unknown 08/08/2025 12:51 PM EDT 08/08/2025 1:30 PM EDT [facility] LAB BLOOD ORDERABLES Final Re sult Performing Organization Address [facility]/ZIP Co de Phone Number [facility] [address] [place] [address], [place] [phone] * (ABNORMAL) Comprehensive metabolic panel (08/08/2025 12:51 PM EDT) [facility] Sodium 133 133 - 145 mmol/L LAB CHEMISTRY METHOD 08/08/2025 2:07 PM [facility] Potassium 3.8 3.5 - 5.5 mmol/L LAB CHEMISTRY METHOD 08/08/2025 2:07 PM [facility] Chloride 99 96 - 110 mmol/L LAB CHEMISTRY METHOD 08/08/2025 2:07 PM T [facility] CO2 26 21 - 32 mmol/L LAB CHEMISTRY METHOD 08/08/2025 2:07 PM [facility] Anion Gap 8 3 - 11 LAB CHEMISTRY METHOD 08/08/2025 2:07 PM [facility] Glucose 221(H) 70 - 100 mg/dL LAB CHEMISTRY METHOD 08/08/2025 2:07 PM [facility] BUN 8 5 - 25 mg/dL LAB CHEMISTRY METHOD 08/08/2025 2:07 PM [facility] Creatinine 0.94 0.70 - 1.30 mg/dL LAB CHEMISTRY METHOD 08/08/2025 2:07 PM [facility] eGFR 99 >=60 mL/min/1. 73m2 LAB CHEMISTRY METHOD 08/08/2025 2:07 PM [facility] Comment:Calculation based on the Chronic Kidney Disease Epidemiology Collaboration (CKD-EPI) equation refit without adjustment for race. BUN/Creatinine Ratio 8.5 LAB CHEMISTRY METHOD 08/08/2025 2:07 PM [facility] Calcium 9.8 8.5 - 10.5 mg/dL LAB CHEMISTRY METHOD 08/08/2025 2:07 PM [facility] AST (SGOT) 54(H) 10 - 42 unit/L LAB CHEMISTRY METHOD 08/08/2025 2:07 PM [facility] ALT (SGPT) 80(H) 10 - 60 unit/L LAB CHEMISTRY METHOD 08/08/2025 2:07 PM [facility] Alkaline Phosphatase 93 42 - 121 unit/L LAB CHEMISTRY METHOD 08/08/2025 2:07 PM [facility] Total Protein 8.1(H) 6.0 - 8.0 g/dL LAB CHEMISTRY METHOD 08/08/2025 2:07 PM [facility] Albumin 4.1 3.2 - 5.0 g/dL LAB CHEMISTRY METHOD 08/08/2025 2:07 PM [facility] Total Bilirubin 1.5(H) 0.0 - 1.4 mg/dL LAB CHEMISTRY METHOD 08/08/2025 2:07 PM [facility] Blood Venous blood specimen / Unknown Venipuncture / Unknown 08/08/2025 12:51 PM EDT 08/08/2025 1:30 PM EDT us Brandy Álvarez DO LAB BLOOD ORDERABLES Final Re sult [facility] [address] [place] [address], documented in this encounter Visit Diagnoses Diagnosis Acute on chronic pancreatitis (CMS/HCC V24, CMS/HCC V28)- Primary documented in this encounter Administered Medications Inactive Administered Medications - up to 3 most recent administrations Medication Order MAR Action Action Date Dose Rate Site HYDROmorphone (DILAUDID) injection 1 mg 1 mg, intravenous, Once, On Odalys 08/08/25 at 1738, For 1 dose Given 08/08/2025 5:52 PM EDT 1 mg iopamidoL (ISOVUE-370) 370 mg iodine /mL (76 %) injection 90 mL 90 mL, intravenous, Once in imaging, Starting on Odalys 08/08/25 at 1923, For 1 dose Given 08/08/2025 7:27 PM EDT 90 mL ipratropium-albuteroL (DUONEB) 0.5-2.5 mg/3 mL nebulizer solution 3 mL 3 mL, nebulization, Once, On Odalys 08/08/25 at 1738, For 1 dose Given 08/08/2025 5:53 PM EDT 3 mL ondansetron (PF) (ZOFRAN) injection 4 mg 4 mg, intravenous, Once, On Odalys 08/08/25 at 1738, For 1 dose Given 08/08/2025 5:52 PM EDT 4 mg sodium chloride 0.9 % bolus 1,000 mL 1,000 mL, intravenous, at 1,000 mL/hr, Administer over 1 Hours, Once, On Odalys 08/08/25 at 1738, For 1 dose New Bag 08/08/2025 5:51 PM EDT 1,000 mL 100 0 mL/hr sodium chloride 0.9 % flush 10 mL 10 mL, intravenous, Once, On Odalys 08/08/25 at 1924, For 1 dose Given 08/08/2025 7:27 PM EDT 10 mL documented in this encounter Active and Recently Administered Medications Times are shown in EDT. Scheduled Medication Order 08/06/2025 08/07/2025 08/08/2025 HYDROmorphone (DILAUDID) injection 1 mg (COMPLETED) 1 mg, intravenous, Once, On Odalys 08/08/25 at 1738, For 1 dose 175 (Given - Provid er: Sveta Kirk RN) iopamidoL (ISOVUE-370) 370 mg iodine /mL (76 %) injection 90 mL (COMPLETED) 90 mL, intravenous, Once in imaging, Starting on Odalys 08/08/25 at 1923, For 1 dose 1926 (Given - Provid er: Mikal Ignacio) ipratropium-albuteroL (DUONEB) 0.5-2.5 mg/3 mL nebulizer solution 3 mL (COMPLETED) 3 mL, nebulization, Once, On Odalys 08/08/25 at 1738, For 1 dose 175 (Given - Provid er: Sveta Kirk RN) ondansetron (PF) (ZOFRAN) injection 4 mg (COMPLETED) 4 mg, intravenous, Once, On Odalys 08/08/25 at 1738, For 1 dose 175 (Given - Provid er: Sveta Kirk RN) sodium chloride 0.9 % bolus 1,000 mL (COMPLETED) 1,000 mL, intravenous, at 1,000 mL/hr, Administer over 1 Hours, Once, On Odalys 08/08/25 at 1738, For 1 dose 175 (New Bag - Prov ider: Sveta Kirk RN)1900 (Stopped - Provider: Michelle Mitchell RN) sodium chloride 0.9 % flush 10 mL (COMPLETED) 10 mL, intravenous, Once, On Odalys 08/08/25 at 1924, For 1 dose 1926 (Given - Provid er: Mikal Ignacio) documented in this encounter Care Teams Event Specialist Food Demonstrator Relationship Specialty Start Date End Date Physician, Pcp Unknown PCP - General 08/08/25 documented as of this encounter
--- NOTE | 2025-08-13 13:14 | MHC.OFFVIS ---
Intake Visit Reasons: 6M renal MRI Intake Note: Patient is present for 6 mo follow up Urology Medication:TADALAFIL, Antibiotic Allergy:NONE Blood Thinner:NONE Imaging : MRI done 08/02/2025 Head Teller Required: No Accompanied by: Self / Same As Patient Allergies Milk Containing Products (Dairy) Allergy (Verified 08/13/25 13:15) Unknown egg allergy Allergy (Intermediate, Uncoded 02/14/25 13:10) Unknown HPI Comments Details: Cheri is a very pleasant male. He is a patient Dr. Fam. He seen for the following urologic conditions - renal cancer - erectile dysfunction Imaging shows good response to try therapy Six-month follow-up chest x-ray with laboratories Refills provided Erectile dysfunction Progressive over past 3 years Is able to obtain partial erection but can not maintain through penetration Associated with diabetes Recommend daily tadalafil with on demand tadalafil Demonstrated penile constriction band Renal cancer - 02/12 cryoablation - low risk lesion cT1 Left 2.7 cm cystic exophytic renal mass Complex renal cyst Imaging - 08/15 MRI The right kidney is unremarkable. There is an irregularly-shaped 2.5 x 1.6 x 1.9 cm ablation cavity at the medial aspect of the upper pole of the left kidney which is hypointense on T1 and T2-weighted images. There is no associated contrast enhancement PFSH Medical History Cough Positive skin test for tuberculosis COPD (chronic obstructive pulmonary disease) Chronic alcoholic liver disease Onychomadesis HTN (hypertension) Diabetes mellitus, type II Balanitis Asthma Alcohol abuse Acute pancreatitis Surgical History H/O removal of cyst Social History Are you a primary healthcare interpreter to a significant other at home: No Do you presently have visiting nurse or other home services: No Patient Tobacco Use Status: Current everyday Tobacco user Cigarette Packs Per Day: 1.0 Cigarettes Per Day: 20.0 Review of Systems Const Denies chills and Denies fever(s) Card Reports no additional complaints and Denies syncope Resp Denies cough GI Denies abdominal pain and Denies heartburn Reports as per HPI and Denies change in libido Neuro Denies syncope Psych Denies change in libido Endo Denies change in libido Physical Exam Const General: cooperative, healthy appearing, comfortable and no acute distress Orientation/consciousness: patient oriented x3 HEENT Face and sinus: Yes normal facial exam Mouth: moist mucous membranes Neck Neck: Yes normal visual inspection, Yes full ROM and Yes trachea midline Chest Chest palpation & inspection: normal inspection of the chest Resp Effort & Inspection: normal respiratory effort, able to speak in complete sentences and no respiratory distress GI Inspection: Yes normal to inspection Back/Spine/Pelvis Cervical Spine: normal cervical lordosis Thoracic/Lumbar Spine: thoracic and lumbar spine normal to inspection Skin General skin exam: no rashes or lesions noted Neuro General: patient oriented x3, gait normal, tone normal and moves all extremities Extrem General: Yes normal to inspection and Yes capillary refill normal Assessment & Plan Assessment & Plan (1) Renal cancer: Code(s): C64.9 - Malignant neoplasm of unspecified kidney, except renal pelvis Category: Medical (2) Erectile dysfunction associated with type 2 diabetes mellitus: Code(s): E11. - Type 2 diabetes mellitus with other specified complication; N52.1 - Erectile dysfunction due to diseases classified elsewhere Category: Medical Plan Six-month follow-up lab work imaging Orders: Orders XR chest 2V 6 Months C64.9 - Malignant neoplasm of unspecified kidney, except renal pelvis Blood Urea Nitrogen 6 Months C64.9 - Malignant neoplasm of unspecified kidney, except renal pelvis Creatinine 6 Months C64.9 - Malignant neoplasm of unspecified kidney, except renal pelvis Prostate Specific Antigen 6 Months C64.9 - Malignant neoplasm of unspecified kidney, except renal pelvis Testosterone, Total 6 Months C64.9 - Malignant neoplasm of unspecified kidney, except renal pelvis Medications: Refilled tadalafil B[facility] N [facility] [address] [id number] 5 mg PO DAILY 90 tabs 1RF sexual activity 90 days - Type 2 diabetes mellitus with other specified complication, N52.1 - Erectile dysfunction due to diseases classified elsewhere tadalafil On demand medication take 60 minutes before intended activity [facility] [address] [id number] 20 mg PO ONCE PRN 30 tabs 1RF sexual activity 30 days - Type 2 diabetes mellitus with other specified complication, N52.1 - Erectile dysfunction due to diseases classified elsewhere Patient Instructions: This note is constructed using voice recognition software. While every effort has been made to ensure accuracy sales team manager errors may have been included. Imaging studies, laboratory and physical exam results were discussed and reviewed in detail. No major barriers to patient understanding were identified. An opportunity to ask questions regarding the treatment plan was provided. All questions were answered. The patient expressed understanding and agreement with the above treatment plan. The patient is aware they should contact our office by phone for worsening of their current condition or the appearance of new urologic symptoms. Compliance is encouraged with any medications and followup testing that is ordered. It is a privilege to participate in the urologic care of your patient. If you have any questions or concerns regarding treatment for the above conditions, or other urologic issues, please do not hesitate to contact me. The office telephone contact is [phone]. Sincerely, Dr Jay Parr MD, ROB [facility] - Urology Compassionate Specialist Care for the Genitourinary System Coding Level of Care Code Est Pt Level 4 (08234) Complex EM visit Add On G2211 Diagnoses Renal cancer C64.9 Erectile dysfunction associated with type 2 diabetes mellitus E11.69; N52.1
--- OUTSIDE RECORDS SUMMARY | 2025-08-13 16:15 | XMS_ITS | Clinical Summary ---
Author Organization [facility] Address [address] [place] [address] Phone Care Team Providers Care Acquisitions Assistant Name Role Phone Physician, Pcp Unknown Primary Care Provider Amber vailable Allergies Active Allergy Reactions Criticality Noted Date Comments Nutritional Supplement-Fiber 025 Milk 08/08/2025 Encounters Date Type Department Care Team Description 08/08/2025 5:12 PM EDT - 08/08/2025 8:32 PM EDT Emergency [facility] Emergency [address] [place] [id number] Jessica Arvizu MD Mogul, Ashley, MD Acute on chronic pancreatitis (CMS/[facility] V24, CMS/[facility] V28) (Primary Dx) Discharge Disposition: Home or Self Care from Last 3 Months Social History Tobacco Use Types Packs/Day Years Used Date Smoking Tobacco: Never Assessed Sex and Gender Information Value Date Recorded Sex Assigned at Not on file Legal Sex Male 3:02 AM EST Gender Identity Not on file Sexual Orientation Not on file Last Filed Vital Signs Vital Sign Reading [...] Mass Index 25.75 08/08/2025 11:18 AM EDT Plan of Treatment Health Maintenance Due Date Last Done Comments Diabetes: Annual Foot Exam 1985 Diabetes: Annual Retina Eye Exam 1985 Hepatitis A Vaccines (1 of 2 - Risk 2-dose series) 1994 Cholesterol Screening (Lipid Panel) 10/24/2022 HIV Screening 10/24/2022 Hepatitis C Screening 10/24/2022 Social Influencers of Health Screening 10/24/2022 Depression Screening 11/21/2024 Influenza Vaccine (#1) 2025 , 09/15/2023, 10/18/2022, Additional history exists Diabetes: Annual Urine Albumin-Creatinine Ratio (uACR) 08/08/2025 Diabetes: Blood Sugar Control Test (HGBA1C) 08/08/2025 Diabetes: Annual GFR (Glomerular Filtration Rate) 08/08/2026 08/08/2025 Hypertension/CHF/CAD Annual BMP Blood Test 08/08/2026 08/08/2025 Colorectal Cancer Screening: FIT-DNA (Cologuard) 09/11/2027 09/11/2024, 09/11/2024 DTaP,Tdap,and Td Vaccines (4 - Td or Tdap) 08/23/2034 08/23/2024, 07/31/2014, 09/17/2013 RSV Immunization Adult Patients (1 - 1-dose 75+ series) 2050 Hepatitis B Vaccines Completed 08/10/2018, 05/01/2018, 02/06/2018, Additional history exists COVID-19 Vaccine Completed 09/08/2024, 06/2022, 03/04/2021, Additional history exists Pneumococcal Vaccine: Pediatrics (0 to 5 Years) and At-Risk Patients (6 to 49 Years) Completed 10/29/2024, 06/01/2008 HIB Vaccines Aged Out No longer eligi [...] to complete this topic RSV Immunization Patients Under 20 months Aged Out No longer eligible based on patient's age to complete this topic Varicella Vaccines Aged Out No longer eligible based on patient's age to complete this topic Procedures Procedure Name Priority Date/Time Associated Diagnosis Comments CT ABDOMEN PELVIS W CONTRAST STAT 08/08/2025 7:31 PM EDT CBC WITH AUTO DIFFERENTIAL STAT 08/08/2025 12:51 PM EDT LIPASE STAT 08/08/2025 12:51 PM EDT COMPREHENSIVE METABOLIC PANEL STAT 08/08/2025 12:51 PM EDT CBC AND DIFFERENTIAL STAT 08/08/2025 12:51 PM EDT from Last 3 Months Results * CT Abdomen Pelvis w Contrast [...] CT abdomen and pelvis with contrast Comparison: CT/KO/IA/SR - ABDOMEN AND PELVIS C+ CT - [...] CT abdomen and pelvis with contrast Comparison: CT/KO/IA/SR - ABDOMEN AND PELVIS C+ CT - [...] MD on 08/08/2025 19:50:05 Jessica Arvizu MD [facility] PROCEDURES Final Result * (ABNORMAL) CBC auto differential (08/08/2025 12:51 PM EDT) WBC 10.4 4.8 - 10.8 K/mcL LAB HEMETOLOGY METHOD 08/08/2025 1:42 PM EDT [facility] RBC 5.10 4.50 - 5.50 M/mcL LAB HEMETOLOGY METHOD 08/08/2025 1:42 PM EDT [facility] Hemoglobin 16.2 13.5 - 17.5 g/dL LAB HEMETOLOGY METHOD 08/08/2025 1:42 PM EDT [facility] Hematocrit 47.6 42.0 - 54.0 % LAB HEMETOLOGY METHOD 08/08/2025 1:42 PM EDT [facility] MCV 93.3 79.0 - 98.0 FL LAB HEMETOLOGY METHOD 08/08/2025 1:42 PM EDT [facility] MCH 31.8 27.0 - 32.0 pcg LAB HEMETOLOGY METHOD 08/08/2025 1:42 PM EDT [facility] MCHC 34.0 32.0 - 37.0 g/dL LAB HEMETOLOGY [facility] R[facility] 13.1 11.0 - 15.0 % LAB HEMETOLOGY METHOD [facility]08[facility] Platelets 158 130 - 400 K/mcL LAB HEMETOLOGY METHOD 08/08/2025 1:42 PM EDT [facility] MPV 10.6 7.0 - 11.0 FL LAB HEMETOLOGY METHOD 08[facility]08[facility]2025 [facility] NRBC 0.0 <1.0 % LAB HEMETOLOGY METHOD 08/08[facility]2025 [facility] NRBC Absolute 0.00 <0.10 K/mcL LAB HEMETOLOGY METHOD 08/08/2025 [facility] Neutrophils Relative 63.2 % LAB HEMETOLOGY METHOD 08/08/2025 [facility] Lymphocytes Relative 22.6 % LAB HEMETOLOGY METHOD 08/08/2025 [facility] Monocytes Relative 12.8 % LAB HEMETOLOGY METHOD 08/08/2025 [facility] Eosinophils Relative 0.7 % LAB HEMETOLOGY METHOD 08/08/2025 [facility] Basophils Relative 0.3 % LAB HEMETOLOGY METHOD 08/08/2025 [facility] Immature Granulocytes Relative 0.4 % LAB HEMETOLOGY METHOD 08/08/2025 [facility] Neutrophils Absolute 6.60 1.50 - 7.00 K/mcL LAB HEMETOLOGY METHOD 08/08/2025 1:42 PM EDT [facility] Lymphocytes Absolute 2.36 1.00 - 5.00 K/[facility] LAB HEMETOLOGY METHOD 08/08/2025 1:42 PM EDT [facility] Monocytes Absolute 1.34(H) 0.20 - 1.00 K/[facility] LAB HEMETOLOGY METHOD 08/08/2025 1:42 PM EDT [facility] Eosinophils Absolute 0.07 0.00 - 0.50 K/[facility] LAB HEMETOLOGY METHOD 08/08/2025 1:42 PM EDT [facility] Basophils Absolute 0.03 0.00 - 0.20 K/[facility] LAB HEMETOLOGY METHOD 08/08/2025 1:42 PM EDT [facility] Immature Granulocytes Absolute 0.04(H) 0.00 - 0.03 K/[facility] LAB HEMETOLOGY METHOD 08/08/2025 1:42 PM EDT [facility] Blood Venous blood specimen / Unknown Venipuncture / Unknown 08/08/2025 12:51 PM EDT 08/08/2025 1:30 PM EDT [place] [facility] BLOOD ORDERABLES Final Re sult Performing Organization Address [facility]/State/ZIP Co de Phone Number [facility] [address] [place] [address], * (ABNORMAL) Lipase (08/08/2025 12:51 PM EDT) Lipase 311(H) 13 - 75 unit/L LAB CHEMISTRY METHOD 08/08/2025 2:08 PM EDT [facility] Blood Venous blood specimen / Unknown Venipuncture / Unknown 08/08/2025 12:51 PM EDT 08/08/2025 1:30 PM EDT [facility] [employer] LAB BLOOD ORDERABLES Final Re sult [facility] [address] [place] [address], * (ABNORMAL) Comprehensive metabolic panel (08/08/2025 12:51 PM EDT) Sodium 133 133 - 145 mmol/L LAB CHEMISTRY METHOD 08/08/2025 2:07 PM EDT [facility] Potassium 3.8 3.5 - 5.5 mmol/L LAB CHEMISTRY METHOD 08/08/2025 2:07 PM [facility] Chloride 99 96 - 110 mmol/L LAB CHEMISTRY METHOD 08/08/2025 2:07 PM [facility] CO2 26 21 - 32 mmol/L LAB CHEMISTRY METHOD 08/08/2025 2:07 PM [facility] Anion Gap 8 3 - 11 LAB CHEMISTRY METHOD 08/08/2025 2:07 PM [facility] Glucose 221(H) 70 - 100 mg/dL LAB CHEMISTRY METHOD 08/08/2025 2:07 PM [facility] BUN 8 5 - 25 mg/dL LAB CHEMISTRY METHOD 08/08/2025 2:07 PM [facility] Creatinine 0.94 0.70 - 1.30 mg/dL LAB CHEMISTRY METHOD 08/08/2025 2:07 PM [facility] eGFR 99 >=60 mL/min/1. 73m2 LAB CHEMISTRY METHOD 08/08/2025 2:07 PM [facility] Comment:Calculation based on the Chronic Kidney Disease Epidemiology Collaboration (CKD-EPI) equation refit without adjustment for race. BUN/Creatinine Ratio 8.5 LAB CHEMISTRY METHOD 08/08/2025 2:07 PM [facility] Calcium 9.8 8.5 - 10.5 mg/dL LAB CHEMISTRY METHOD 08/08/2025 2:07 PM [facility] AST (SGOT) 54(H) 10 - 42 unit/L LAB CHEMISTRY METHOD 08/08/2025 2:07 PM EDT [facility] ALT (SGPT) 80(H) 10 - 60 unit/L LAB CHEMISTRY METHOD 08/08/2025 2:07 PM EDT [facility] Alkaline Phosphatase 93 42 - 121 unit/L LAB CHEMISTRY METHOD 08/08/2025 2:07 PM EDT [facility] Total Protein 8.1(H) 6.0 - 8.0 g/dL LAB CHEMISTRY METHOD 08/08/2025 2:07 PM EDT [facility] Albumin 4.1 3.2 - 5.0 g/dL LAB CHEMISTRY METHOD 08/08/2025 2:07 PM EDT [facility] Total Bilirubin 1.5(H) 0.0 - 1.4 mg/dL LAB CHEMISTRY METHOD 08/08/2025 2:07 PM EDT [facility] Blood Venous blood specimen / Unknown Venipuncture / Unknown 08/08/2025 12:51 PM EDT 08/08/2025 1:30 PM EDT us Brandy Álvarez DO LAB BLOOD ORDERABLES Final Re sult [facility] [address] [place] [address], from Last 3 Months Insurance [facility] MEDICA[employer] ADVANTAGE Care Teams Acquisitions Assistant Relationship Specialty Start Date End Date Physician, Pcp Unknown PCP - General 08/08/25
== END 2025-08-13 13:47 | disposition home or self-care (01) ==
LOC: HO.HUSH 13:13
PROVIDERS: PCP Nurse Practitioner Family; Visit Provider Urology
DX: C64.9 Malignant neoplasm of unspecified kidney, except renal pelvis (principal); E11.69 Type 2 diabetes mellitus with other specified complication; N52.1 Erectile dysfunction due to diseases classified elsewhere
CPT/HCPCS: 99214; G2211

== ENCOUNTER → 2025-08-13 13:13 | Outpatient (BNVA) | payer OTHER, SELFPAY | PROVIDERS: PCP Nurse Practitioner Family; Visit Provider Urology | DX: E11.69 Type 2 diabetes mellitus with other specified complication (principal); C64.9 Malignant neoplasm of unspecified kidney, except renal pelvis; N52.1 Erectile dysfunction due to diseases classified elsewhere | CPT/HCPCS: 99212 ==